=== PATIENT | female | born 1990 | race Caucasian/White ===

== ENCOUNTER 2016-12-15 03:47 | Emergency (ER) | payer MEDICAID ==
[2016-12-15] MEDS ORDERED: DIAZEPAM 5 MG/1 ML TUBX IM ONE (04:17)
[2016-12-15] MEDS ORDERED: HALOPERIDOL LACTATE 5 MG/ML VIAL IM ONE (04:17)
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
[2016-12-15 04:31] LABS: HEMATOCRIT 42.1 % (35.0-47.0); HEMOGLOBIN 15.1 gm/dl (11.6-16.0); MEAN CELL VOLUME 97.7 fl (81-97); MEAN CORPUSCULAR HGB CONC 35.9 g/dl (32-36); PLATELET COUNT 302 K/uL (130-400); RED BLOOD COUNT 4.31 M/uL (3.80-5.40); RED CELL DISTRIBUTION WIDTH 13.7 % (11.5-14.5); WHITE BLOOD COUNT W/O DIFF 7.7 K/uL (4.2-12.2)
[2016-12-15 04:45] LABS: AMPHETAMINE SCREEN URINE NOT DETECTED; BARBITURATE SCREEN URINE NOT DETECTED; BENZODIAZEPINE SCREEN URINE NOT DETECTED; COCAINE SCREEN URINE NOT DETECTED; METHADONE SCREEN URINE NOT DETECTED; METHAMPHETAMINE SCREEN NOT DETECTED; OPIATE SCREEN URINE NOT DETECTED; OXYCODONE SCREEN URINE NOT DETECTED; PHENCYCLIDINE SCREEN URINE NOT DETECTED; PROPOXYPHENE SCREEN URINE NOT DETECTED; THC SCREEN URINE DETECTED; TRICYCLIC ANTIDEPRESSANT SCRN NOT DETECTED
[2016-12-15 04:50] LABS: ALB/GLOB RATIO 1.1 (1.1-1.8); ALBUMIN 4.3 g/dL (4.0-5.0); ALKALINE PHOSPHATASE 109 U/L (35-104); ALT/SGPT 65 U/L (<33); AST/SGOT 75 U/L (10.0-35.0); BLOOD UREA NITROGEN 7 mg/dL (6-20); CREATININE 0.8 mg/dL (0.5-0.9); EST GLOMERULAR FILTRATION RATE > 60 mL/min; GLUCOSE,RANDOM 92 mg/dL (74-109); TOTAL PROTEIN 8.3 g/dL (6.6-8.7)
[2016-12-15 04:51] LABS: ACETAMINOPHEN < 5.0 ug/mL (10.0-30.0); ALCOHOL 0.329 g/dL (0-0.010); SALICYLATE < 0.3 mg/dL (2.8-20)
[2016-12-15 05:00] LABS: THYROID STIMULATING HORMONE 2.41 uIU/mL (0.270-4.20)
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
== END 2016-12-15 13:52 | disposition home or self-care (01) ==
LOC: ER 03:47
DX: R45.851 Suicidal ideations (principal); F10.120 Alcohol abuse with intoxication, uncomplicated; F12.90 Cannabis use, unspecified, uncomplicated; Y90.8 Blood alcohol level of 240 mg/100 ml or more
CPT/HCPCS: 99284 ×2; 96372; 80053; 84443; 81025; 80305; 85027; G0480 ×3; 80320; 80329; J1630; J3360

== ENCOUNTER 2017-02-23 13:34 | Emergency (ER) | payer MEDICAID ==
[2017-02-23] MEDS ORDERED: 0.9 % SODIUM CHLORIDE 1,000 ML BAG IV ONE (15:03)
[2017-02-23] MEDS ORDERED: ONDANSETRON HCL IV 4 MG/2 ML VIAL IV ONE (15:03)
[2017-02-23] MEDS ORDERED: HYDROMORPHONE HCL 1 MG/ML SYRINGE IVP ONE (15:04)
[2017-02-23 15:17] LABS: BASO % 0.1 % (0-6); EOS % 1.1 % (0-6); GRAN % 63.7 % (47-80); HEMATOCRIT 44.6 % (35.0-47.0); LYMPH % 28.1 % (16-45); MEAN CELL VOLUME 99.1 fl (81-97); MEAN CORPUSCULAR HEMOGLOBIN 33.3 pg (27-33); MEAN CORPUSCULAR HGB CONC 33.6 g/dl (32-36); MEAN PLATELET VOLUME 9.7 fl (7.4-10.4); PLATELET COUNT 279 K/uL (130-400); WHITE BLOOD COUNT W/O DIFF 7.3 K/uL (4.2-12.2)
[2017-02-23 15:19] LABS: HCG,QUALITATIVE URINE NEGATIVE (NEGATIVE)
[2017-02-23 15:20] LABS: URINE APPEARANCE CLEAR; URINE BILIRUBIN NEGATIVE (NEGATIVE); URINE BLOOD NEGATIVE (NEGATIVE); URINE COLOR YELLOW; URINE GLUCOSE (UA) NEGATIVE (NEGATIVE); URINE KETONE NEGATIVE (NEGATIVE); URINE LEUKOCYTE ESTERASE NEGATIVE (NEGATIVE); URINE NITRITE NEGATIVE (NEGATIVE); URINE PROTEIN NEGATIVE (NEGATIVE); URINE UROBILINOGEN 0.2 E.U./dL (0.20 - 1.00)
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
[2017-02-23 15:29] LABS: BLOOD UREA NITROGEN 6 mg/dL (6-20); CREATININE 0.7 mg/dL (0.5-0.9); EST GLOMERULAR FILTRATION RATE > 60 mL/min
[2017-02-23 15:30] LABS: TOTAL PROTEIN 7.9 g/dL (6.6-8.7)
[2017-02-23 15:32] LABS: GLUCOSE,RANDOM 94 mg/dL (74-109)
[2017-02-23 15:35] LABS: ALKALINE PHOSPHATASE 101 U/L (35-104); ALT/SGPT 131 U/L (<33); AST/SGOT 119 U/L (10.0-35.0)
[2017-02-23] MEDS ORDERED: KETOROLAC 30 MG/ML VIAL IVP ONE (16:44)
--- NOTE | 2017-02-24 14:09 | CT SCAN REPORT ---
EXAM: CT OF THE ABDOMEN AND PELVIS WITHOUT CONTRAST HISTORY: RIGHT LOWER QUADRANT PAIN. TECHNIQUE: Sequential axial images were obtained from the diaphragms through the ischiorectal fossa without intravenous or oral contrast administration. FINDINGS: There is fatty infiltration of the liver. The gallbladder, pancreas and spleen appear normal. The adrenal glands and kidneys appear normal. No CT findings suggestive of obstructive uropathy. The urinary bladder appears normal. There is a prominent right ovarian follicle/cyst measuring 2.5 cm. The appendix is visualized and appears normal. The small and large bowel appears normal. IMPRESSION: 1. THE APPENDIX IS VISUALIZED AND APPEARS NORMAL. THERE IS A PROMINENT RIGHT OVARIAN CYST/FOLLICLE MEASURING 2.5 CM. 2. FATTY INFILTRATION OF THE LIVER. JOB NUMBER: [id number] MTDD
== END 2017-02-23 17:48 | disposition home or self-care (01) ==
LOC: ER 13:34
DX: N83.201 Unspecified ovarian cyst, right side (principal); R10.31 Right lower quadrant pain; R11.2 Nausea with vomiting, unspecified
CPT/HCPCS: 74176; 80053; 81003; 81025; 85025; 96361; 96374; 96375; 99284; J1170; J1885; J2405; J7030

== ENCOUNTER 2017-02-26 19:13 | Emergency (ER) | payer MEDICAID ==
[2017-02-26] MEDS ORDERED: ONDANSETRON HCL IV 4 MG/2 ML VIAL IVP ONE (19:48)
[2017-02-26] MEDS ORDERED: MORPHINE SULFATE 5 MG/ML PFS IVP ONE ×2 (19:48→21:19)
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
[2017-02-26] MEDS ORDERED: 0.9 % SODIUM CHLORIDE 1000ML 1,000 ML IV SCH (20:00)
[2017-02-26 20:18] LABS: BASO % 0.1 % (0-6); EOS % 1.2 % (0-6); GRAN % 72.3 % (47-80); HEMOGLOBIN 13.2 gm/dl (11.6-16.0); LYMPH % 19.8 % (16-45); MEAN CELL VOLUME 100.5 fl (81-97); MEAN CORPUSCULAR HEMOGLOBIN 33.2 pg (27-33); MEAN PLATELET VOLUME 9.5 fl (7.4-10.4); MONO % 6.6 % (0-9); PLATELET COUNT 239 K/uL (130-400); RED BLOOD COUNT 3.98 M/uL (3.80-5.40); RED CELL DISTRIBUTION WIDTH 13.9 % (11.5-14.5); WHITE BLOOD COUNT W/O DIFF 6.9 K/uL (4.2-12.2)
[2017-02-26 20:22] LABS: URINE APPEARANCE SL CLOUDY; URINE BILIRUBIN NEGATIVE (NEGATIVE); URINE BLOOD NEGATIVE (NEGATIVE); URINE COLOR YELLOW; URINE GLUCOSE (UA) NEGATIVE (NEGATIVE); URINE KETONE NEGATIVE (NEGATIVE); URINE LEUKOCYTE ESTERASE NEGATIVE (NEGATIVE); URINE NITRITE NEGATIVE (NEGATIVE); URINE PROTEIN NEGATIVE (NEGATIVE); URINE UROBILINOGEN 0.2 E.U./dL (0.20 - 1.00)
[2017-02-26 20:25] LABS: HCG,QUALITATIVE URINE NEGATIVE (NEGATIVE)
[2017-02-26 20:32] LABS: BLOOD UREA NITROGEN 8 mg/dL (6-20); CREATININE 0.7 mg/dL (0.5-0.9); EST GLOMERULAR FILTRATION RATE > 60 mL/min
[2017-02-26 20:35] LABS: GLUCOSE,RANDOM 104 mg/dL (74-109)
[2017-02-26 20:37] LABS: ALB/GLOB RATIO 1.2 (1.1-1.8); ALBUMIN 3.8 g/dL (4.0-5.0); ALKALINE PHOSPHATASE 89 U/L (35-104); ALT/SGPT 59 U/L (<33); AST/SGOT 41 U/L (10.0-35.0); LIPASE 16 U/L (13-60)
== END 2017-02-26 22:19 | disposition short-term general hospital (02) ==
LOC: ER 19:13
DX: R10.31 Right lower quadrant pain (principal)
CPT/HCPCS: 99285 ×2; 96376; 96374; 96375; 83690; 85025; 80053; 81003; 81025; J2405; J2270; J7030

== ENCOUNTER 2017-03-31 13:57 | Emergency (ER) | payer MEDICAID ==
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
[2017-03-31] MEDS: ORPHENADRINE CITRATE 60MG/2ML VIAL IM ONE (15:43)
[2017-03-31] MEDS: KETOROLAC 60 MG/2 ML VIAL IM STA (15:43)
--- NOTE | 2017-04-01 10:45 | RADIOLOGY REPORT ---
EXAM: LUMBAR SPINE HISTORY: BACK PAIN. TECHNIQUE: Five views of the lumbar spine were obtained. Comparison: Prior lumbar spine from 02/04/11. FINDINGS: There are six non-rib bearing lumbar type vertebral bodies. There is sacralization of the L6 segment with pseudoarticulation of the right L6 transverse process and the underlying sacrum. Height and alignment is otherwise preserved. The disk spaces are otherwise maintained. IMPRESSION: NO ACUTE ABNORMALITY. SIX LUMBAR TYPE VERTEBRAL BODIES. JOB NUMBER: [id number] AND [id number] [facility]
== END 2017-03-31 17:21 | disposition home or self-care (01) ==
LOC: ER 13:57
DX: S30.0XXA Contusion of lower back and pelvis, initial encounter (principal); F17.210 Nicotine dependence, cigarettes, uncomplicated; W00.0XXA Fall on same level due to ice and snow, initial encounter; Y92.410 Unspecified street and highway as the place of occurrence of the external cause
CPT/HCPCS: 72110; 81025; 96372; 99283; 99284; J1885; J2360

== ENCOUNTER 2017-12-18 19:54 | Emergency (ER) | payer SELFPAY | END 2017-12-18 20:25 | disposition left against medical advice (07) | LOC: ER 19:54 | DX: Z53.20 Procedure and treatment not carried out because of patient's decision for unspecified reasons (principal) ==

== ENCOUNTER 2018-09-08 17:02 | Emergency (ER) | payer MEDICAID ==
[2018-09-08] MEDS ORDERED: ACETAMINOPHEN 1,000 MG/100 ML BTL IVPB ONE (17:12)
[2018-09-08] MEDS ORDERED: 0.9 % SODIUM CHLORIDE 1,000 ML BAG IV ONE (17:12)
[2018-09-08] MEDS ORDERED: KETOROLAC 30 MG/ML VIAL IVP ONE (17:13)
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
[2018-09-08 17:27] LABS: ABSOLUTE NEUTROPHIL COUNT 2.46; BASO % 0.2 % (0-6); EOS % 3.3 % (0-6); GRAN % 42.4 % (47-80); HEMATOCRIT 33.8 % (35.0-47.0); HEMOGLOBIN 11.1 gm/dl (11.6-16.0); LYMPH % 47.2 % (16-45); MEAN CELL VOLUME 94.7 fl (81-97); MEAN CORPUSCULAR HGB CONC 32.8 g/dl (32-36); MEAN PLATELET VOLUME 9.2 fl (7.4-10.4); MONO % 6.9 % (0-9); PLATELET COUNT 369 K/uL (130-400); RED BLOOD COUNT 3.57 M/uL (3.80-5.40); RED CELL DISTRIBUTION WIDTH 13.9 % (11.5-14.5); WHITE BLOOD COUNT W/O DIFF 5.8 K/uL (4.2-12.2)
[2018-09-08 17:38] LABS: BLOOD UREA NITROGEN 12 mg/dL (6-20); CREATININE 0.7 mg/dL (0.5-0.9); EST GLOMERULAR FILTRATION RATE > 60 mL/min; TOTAL PROTEIN 6.1 g/dL (6.6-8.7)
[2018-09-08 17:40] LABS: GLUCOSE,RANDOM 82 mg/dL (74-109)
[2018-09-08 17:43] LABS: ALB/GLOB RATIO 1.3 (1.1-1.8); ALBUMIN 3.4 g/dL (4.0-5.0); ALKALINE PHOSPHATASE 83 U/L (35-104); ALT/SGPT 8 U/L (<33); AST/SGOT 11 U/L (10.0-35.0)
--- NOTE | 2018-09-10 15:34 | CT SCAN REPORT ---
EXAM: CT SCAN ABDOMEN/PELVIS W CONTRAST HISTORY: APPROXIMATELY EIGHT DAYS PRIOR. FELL YESTERDAY. FEELS SUTURES MAY BE COMING APART. TECHNIQUE: Routine CT images of the abdomen and pelvis were obtained following intravenous administration of contrast. Amount and type of contrast in the medical record. COMPARISON: 02/23/17. FINDINGS: Visualized lung bases are unremarkable. There is hepatic steatosis and hepatomegaly. The spleen measures 17.5 cm in the mid clavicular line. The gallbladder, pancreas, spleen, and adrenals are unremarkable. Kidneys enhance normally with contrast. The bowel is normal in caliber. Moderate volume of stool within the colon. No gastrointestinal inflammatory change. Bladder is unremarkable. Aorta enhances normally with contrast. No abdominal or pelvic lymphadenopathy. No acute osseous abnormality. The uterus is enlarged measuring approximately 16 cm craniocaudal, though this is within normal limits given patient's puerperal status. There does appear to be some heterogeneity within the anterior uterus, probably reflecting changes of recent cesarian section. No clear evidence for posttraumatic change to the uterus, though sensitivity is somewhat limited on CT. No prominent free fluid within the pelvis. There does appear to be some heterogeneity within the endometrium, probably reflecting blood products from recent delivery. Mild anasarca. IMPRESSION: 1. UTERINE ENLARGEMENT AND HETEROGENEITY, PROBABLY WITHIN NORMAL LIMITS GIVEN RECENT CESARIAN SECTION REPORTEDLY EIGHT DAYS PRIOR. NO SIGNIFICANT FREE FLUID WITHIN THE PELVIS. PLEASE NOTE CT ASSESSMENT FOR UTERINE PERFORATION IS SOMEWHAT LIMITED AND, IF PERSISTENT CLINICAL CONCERN, FOLLOW-UP IMAGING SHOULD BE OBTAINED. 2. MILD HETEROGENEITY WITHIN THE ENDOMETRIUM, PROBABLY REFLECTING BLOOD PRODUCTS FROM RECENT CESARIAN SECTION. 3. MILD HEPATOMEGALY AND HEPATIC STEATOSIS. JOB NUMBER: [id number] [facility]
== END 2018-09-08 19:08 | disposition home or self-care (01) ==
LOC: ER 17:02
DX: O90.89 Other complications of the puerperium, not elsewhere classified (principal); S39.011A Strain of muscle, fascia and tendon of abdomen, initial encounter; W18.09XA Striking against other object with subsequent fall, initial encounter
CPT/HCPCS: 74177; 80053; 85025; 96365; 99284; J1885; J7030